=== PATIENT | male | born 1970 | race Caucasian/White ===

== ENCOUNTER 2018-08-09 13:30 | Emergency (ER) | payer OTHER ==
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
[2018-08-09] MEDS ORDERED: Ketorolac 30 MG/ML SDV IM ONE (15:08)
--- NOTE | 2018-08-09 15:40 | CR ---
Left shoulder: Three views of the left shoulder were obtained. Comparison: No prior shoulder study. Acromioclavicular and glenohumeral joints are within normal limits. No fracture, dislocation or other bony abnormality is seen. Impression: 1. No abnormality is identified on left shoulder study. Diagnostic code #1
== END 2018-08-09 16:21 | disposition home or self-care (01) ==
LOC: JD.ED 13:30
DX: M25.512 Pain in left shoulder (principal); M62.838 Other muscle spasm; F17.210 Nicotine dependence, cigarettes, uncomplicated; I10 Essential (primary) hypertension
CPT/HCPCS: 73030; 96372; 99283; J1885

== ENCOUNTER 2020-02-15 09:33 | Emergency (ER) | payer OTHER ==
--- NOTE | 2020-02-15 10:19 | EDM.PDOC ---
ED HPI GENERAL MEDICAL PROBLEM - General Chief Complaint: Neurological Problem Stated Complaint: DIZZY/LIGHTHEADED/ARM AND FACE NUMB OFF AND ON Time Seen by Provider: 02/15/20 10:19 - History of Present Illness INITIAL COMMENTS - FREE TEXT/NARRATIVE: 49-year-old male presents the emergency room with a history of left-sided numbness. Yesterday the patient had an episode where he developed left-sided facial numbness along with numbness in his arm and to a lesser degree in his leg. At this point he has some residual numbness in the left side of his face below the level of the eye extending down to the jaw. He does not have significant pain with this. When this episode started yesterday, he had a some lightheadedness with this and he left work early to go home and can try and get some rest. The patient has a significant family history of a mom who had a stroke at age 52. The patient smokes about a pack a day. And the patient has multiple energy drinks daily. He does not sleep well at night so he gets quite sleepy at work. It sounds like he is had a long-term problem with insomnia even prior to the energy drinks. - Related Data Allergies Allergy/AdvReac Type Severity Reaction Status Date / Time No Known Allergies Allergy Verified 02/15/20 09:37 Home Meds: Home Meds . [No Known Home Meds] 02/15/20 [History] Past Medical History HEENT History: Reports: Hard of Hearing, Impaired Vision Cardiovascular History: Reports: Hypertension Musculoskeletal History: Reports: Fracture, Neck Pain, Chronic - Past Surgical History HEENT Surgical History: Reports: Oral Surgery, Tonsillectomy Social & Family History - Family History Family Medical History: Noncontributory Cardiac: Reports: CAD Respiratory: Reports: COPD Oncologic: Reports: Prostate - Tobacco Use Smoking Status *Q: Current Every Day Smoker Years of Tobacco use: 34 Packs/Tins Daily: 1 - Caffeine Use Caffeine Use: Reports: Energy Drinks, Soda, Tea - Recreational Drug Use Recreational Drug Use: Yes Drug Use in Last 12 Months: Yes Recreational Drug Type: Reports: Marijuana/Hashish Recreational Drug Use Frequency: Socially ED ROS GENERAL - Review of Systems Review Of Systems: See Below Constitutional: Reports: No Symptoms HEENT: Reports: No Symptoms Respiratory: Reports: No Symptoms Cardiovascular: Reports: No Symptoms GI/Abdominal: Reports: No Symptoms : Reports: No Symptoms Musculoskeletal: Reports: No Symptoms Skin: Reports: No Symptoms Neurological: Reports: Numbness. Denies: Dizziness, Headache, Tremors, Change in Speech, Gait Disturbance Psychiatric: Reports: No Symptoms Hematologic/Lymphatic: Reports: No Symptoms ED EXAM, NEURO - Physical Exam Exam: See Below Exam Limited By: No Limitations General Appearance: Alert, No Apparent Distress Eye Exam: Bilateral Eye: EOMI, Normal Inspection, PERRL Ears: Normal External Exam, Normal Canal, Hearing Grossly Normal, Other (Patient has had multiple ear surgeries and has decreased hearing uses a hearing aid on the right side). No: Normal TMs Nose: Normal Inspection, Normal Mucosa Throat/Mouth: Normal Inspection, Normal Lips, Normal Teeth, Normal Gums, Normal Oropharynx, Normal Voice, No Airway Compromise Head Exam: Atraumatic, Normocephalic Neck: Normal Inspection, Supple, Non-Tender, Full Range of Motion. No: Lymphadenopathy (L), Lymphadenopathy (R) Respiratory/Chest: No Respiratory Distress, Lungs Clear, Normal Breath Sounds Cardiovascular: Regular Rate, Rhythm, No Edema, No Murmur GI/Abdominal: Normal Bowel Sounds, Soft, Non-Tender Neurological: Alert, Normal Mood/Affect, Other (The patient does not have any obvious muscle weakness in his face or his extremities. He does have some subtle numbness-like sensation over his left cheek. This does not extend up to the level of his eye or below his jaw. And over time seems to be getting better) Back Exam: Normal Inspection. No: CVA Tenderness (L), CVA Tenderness (R) Extremities: Normal Inspection, No Pedal Edema Psychiatric: Normal Affect, Normal Mood Skin Exam: Warm, Dry, Intact Course - Vital Signs Last Recorded V/S: Last Vital Signs Temp 36.6 C 02/15/20 09:40 Pulse 67 02/15/20 09:40 Resp 18 02/15/20 09:40 BP 153/100 H 02/15/20 09:40 Pulse Ox 96 02/15/20 09:40 - Orders/Labs/Meds Orders: Active Orders 24 hr Category Date Time Status EKG Documentation Completion [RC] STAT Care 02/15/20 12:18 Active Labs: Laboratory Tests 02/15/20 02/15/20 02/15/20 Range/Units 09:55 09:55 09:55 WBC 6.30 (4.23-9.07) K/mm3 RBC 5.10 (4.63-6.08) M/mm3 Hgb 15.6 (13.7-17.5) gm/dl Hct 45.8 (40.1-51.0) % MCV 89.8 (79.0-92.2) fl MCH 30.6 (25.7-32.2) pg MCHC 34.1 (32.2-35.5) g/dl RDW Std Deviation 41.9 (35.1-43.9) fL Plt Count 348 H (163-337) K/mm3 MPV 9.7 (9.4-12.3) fl Neut % (Auto) 46.8 (34.0-67.9) % Lymph % (Auto) 35.7 (21.8-53.1) % Churchill % (Auto) 13.0 H (5.3-12.2) % Eos % (Auto) 3.7 (0.8-7.0) Baso % (Auto) 0.3 (0.1-1.2) % Neut # (Auto) 2.95 (1.78-5.38) K/mm3 Lymph # (Auto) 2.25 (1.32-3.57) K/mm3 Churchill # (Auto) 0.82 (0.30-0.82) K/mm3 Eos # (Auto) 0.23 (0.04-0.54) K/mm3 Baso # (Auto) 0.02 (0.01-0.08) K/mm3 PT 10.9 (9.7-11.7) SECONDS INR 1.02 APTT 29 (22-31) SECONDS Sodium 136 (136-145) mEq/L Potassium 4.0 (3.5-5.1) mEq/L Chloride 103 (98-107) mEq/L Carbon Dioxide 26 (21-32) mEq/L Anion Gap 11.0 (5-15) BUN 7 (7-18) mg/dL Creatinine 1.1 (0.7-1.3) mg/dL Est Cr Clr Drug Dosing 66.26 mL/min Estimated GFR (MDRD) > 60 (>60) mL/min BUN/Creatinine Ratio 6.4 L (14-18) Glucose 102 (74-106) mg/dL Calcium 9.2 (8.5-10.1) mg/dL Total Bilirubin 0.2 (0.2-1.0) mg/dL AST 17 (15-37) U/L ALT 24 (16-63) U/L Alkaline Phosphatase 99 (46-116) U/L Troponin I < 0.017 (0.00-0.056) ng/mL Total Protein 7.2 (6.4-8.2) g/dl Albumin 3.7 (3.4-5.0) g/dl Globulin 3.5 gm/dL Albumin/Globulin Ratio 1.1 (1-2) - Re-Assessments/Exams Free Text/Narrative Re-Assessment/Exam: 02/15/20 12:54 At this time the patient is symptom-free. His laboratory evaluation is unrevealing head CT shows previous mastoidectomy agreed to be postsurgical nothing acute otherwise noted. I did discuss patient's case with Dr. Vail, we discussed the possibility of treatment for potential Orozco's palsy he cautioned against this. He did recommend checking a carotid Doppler. And starting baby aspirin. He agrees with stopping all energy drinks. I discussed this with the patient and he agrees to do so he agrees to follow-up with her regular provider I have recommended that we get a carotid Doppler he would like to have this done after and at the time he establishes with a regular provider and this is reasonable the patient agrees to do this this next week. Departure - Departure Time of Disposition: 12:56 Disposition: Home, Self-Care 01 Clinical Impression: Numbness - Discharge Information Referrals: PCP,None [Primary Care Provider] - Forms: ED Department Discharge Additional Instructions: Return to the emergency room with any questions problems or worsening symptoms. Start baby aspirin therapy today go by bottle of 81 mg enteric-coated baby aspirin and take 1 daily. Follow-up with a local healthcare provider this next week and discuss having them check a carotid Doppler on you especially with your family history of stroke and your smoking history. Stop all energy drinks! Try and make you still stay awake during the day the best that you can try and get to bed around 10:00 every evening anticipate waking up at 630 every morning. Trying to establish a normal sleep cycle. Sleeping medicines are an option however with all the energy drinks you are taking at this point I think it be more beneficial to hold off on that at this point. Sepsis Event Note (ED) - Evaluation Sepsis Screening Result: No Definite Risk - Focused Exam Vital Signs: Vital Signs Temp Pulse Resp BP Pulse Ox 02/15/20 09:40 36.6 C 67 18 153/100 H 96 - My Orders Last 24 Hours: My Active Orders 02/15/20 12:18 EKG Documentation Completion [RC] STAT - Assessment/Plan Last 24 Hours: My Active Orders 02/15/20 12:18 EKG Documentation Completion [RC] STAT
--- NOTE | 2020-02-15 11:01 | CT ---
Head CT Technique: Multiple axial sections through the brain were obtained. Intravenous contrast was not utilized. Comparison: No previous intracranial imaging is available. Findings: Ventricles along with basal cisterns and sulci over the convexities are within normal limits for the patient's age. No abnormal parenchymal densities are seen. No evidence of intracranial hemorrhage. No midline shift or mass-effect is seen. Bone window settings were reviewed. Previous right mastoidectomy is seen. Soft tissue material is noted within the mastoid defect presumably representing postop change. Left mastoid sinus is clear. Visualized paranasal sinuses are clear. No acute calvarial finding is seen. Impression: 1. Previous right mastoidectomy. Soft tissue density within the mastoid defect presumably postsurgical. 2. Nothing acute is appreciated on noncontrast head CT study. Diagnostic code #2 This report was dictated in MDT
== END 2020-02-15 13:15 | disposition home or self-care (01) ==
LOC: JD.ED 09:33
DX: R20.0 Anesthesia of skin (principal); I10 Essential (primary) hypertension; F17.210 Nicotine dependence, cigarettes, uncomplicated
CPT/HCPCS: 36415; 70450; 70450-26; 80053; 84484; 85025; 85610; 85730; 99283; 99284-25

== ENCOUNTER 2020-05-19 15:07 | Emergency (ER) | payer OTHER ==
--- NOTE | 2020-05-19 16:03 | EDM.PDOC ---
ED HPI GENERAL MEDICAL PROBLEM - General Chief Complaint: Respiratory Problem Stated Complaint: ABNORMAL EKG SENT BY [facility] [employer] Time Seen by Provider: 05/19/20 15:25 Source of Information: Reports: Patient, RN Notes Reviewed History Limitations: Reports: No Limitations - History of Present Illness INITIAL COMMENTS - FREE TEXT/NARRATIVE: Patient is a 49-year-old male who presents to the ED via referral from his primary care provider for the evaluation of his ongoing shortness of breath. He was seen by his PA located in the [facility] in [place], [place] for follow-up on his labs and clinic visit last week. He notes that last week Tuesday he had a syncopal episode at work, and he also had an episode of elevated blood pressure. He notes since then, he has had increased shortness of breath, fatigue so much so that he just cannot get anything done at home. He is complaining of some mild GERD or heartburn sensations, worse over the last couple days. He has not had any fevers or chills, he does have a cough that seems to be worsening however he is a smoker and relates he does have a smoker's cough. He does not know if he has had any known Covid-like contacts. The provider at the clinic was concerned about his increasing dyspnea. - Related Data Allergies Allergy/AdvReac Type Severity Reaction Status Date / Time No Known Allergies Allergy Verified 05/19/20 15:20 Home Meds: Home Meds . [No Known Home Meds] 02/15/20 [History] Past Medical History HEENT History: Reports: Hard of Hearing, Impaired Vision Cardiovascular History: Reports: High Cholesterol, Hypertension Musculoskeletal History: Reports: Fracture, Neck Pain, Chronic - Past Surgical History HEENT Surgical History: Reports: Oral Surgery, Tonsillectomy Social & Family History - Family History Family Medical History: No Pertinent Family History Cardiac: Reports: CAD Respiratory: Reports: COPD Oncologic: Reports: Prostate - Tobacco Use Tobacco Use Status *Q: Current Every Day Tobacco User Years of Tobacco use: 35 Packs/Tins Daily: 1.5 - Caffeine Use Caffeine Use: Reports: Coffee, Energy Drinks Caffeine Use Comment: has not had any energy drinks in about a month - Recreational Drug Use Recreational Drug Use: No ED ROS GENERAL - Review of Systems Review Of Systems: Comprehensive ROS is negative, except as noted in HPI. ED EXAM, GENERAL - Physical Exam Exam: See Below Exam Limited By: No Limitations General Appearance: Alert, WD/WN, No Apparent Distress Respiratory/Chest: No Respiratory Distress, Lungs Clear, Normal Breath Sounds, No Accessory Muscle Use, Chest Non-Tender Cardiovascular: Normal Peripheral Pulses, Regular Rate, Rhythm, No Murmur Peripheral Pulses: 2+: Radial (L), Radial (R) Extremities: Normal Inspection, Normal Capillary Refill Neurological: Alert, Oriented, Normal Cognition, No Motor/Sensory Deficits Psychiatric: Normal Affect, Normal Mood Skin Exam: Warm, Dry, Intact, Normal Color, No Rash #1 Interpretation EKG Date: 05/19/20 Time: 15:18 Rhythm: NSR Rate (Beats/Min): 68 [place]: Normal P-Wave: Present QRS: Normal ST-T: Normal QT: Normal EKG Interpretation Comments: No obvious ischemia or acute ST changes noted, reviewed by myself and Dr. Lopez. Course - Vital Signs Last Recorded V/S: Last Vital Signs Temp 97.1 F 05/19/20 15:15 Pulse 67 05/19/20 15:15 Resp 18 05/19/20 15:15 BP 153/86 H 05/19/20 15:15 Pulse Ox 100 05/19/20 15:15 - Orders/Labs/Meds Orders: Active Orders 24 hr Category Date Time Status EKG Documentation Completion [RC] STAT Care 05/19/20 15:39 Ordered Chest 1V Frontal [CR] Stat Exams 05/19/20 17:09 Ordered CORONAVIRUS COVID-19 PCR PHL Stat Lab 05/19/20 15:40 Ordered Labs: Laboratory Tests 05/19/20 05/19/20 05/19/20 Range/Units 16:00 16:00 16:00 WBC 10.01 H (4.23-9.07) K/mm3 RBC 4.67 (4.63-6.08) M/mm3 Hgb 14.3 (13.7-17.5) gm/dl Hct 41.5 (40.1-51.0) % MCV 88.9 (79.0-92.2) fl MCH 30.6 (25.7-32.2) pg MCHC 34.5 (32.2-35.5) g/dl RDW Std Deviation 42.2 (35.1-43.9) fL Plt Count 341 H (163-337) K/mm3 MPV 9.4 (9.4-12.3) fl Neutrophils % (Manual) 71 H (40-60) % Band Neutrophils % 0 (0-10) % Lymphocytes % (Manual) 22 (20-40) % Atypical Lymphs % 0 % Monocytes % (Manual) 7 (2-10) % Eosinophils % (Manual) 0 L (0.8-7.0) % Basophils % (Manual) 0 L (0.2-1.2) Platelet Estimate Adequate RBC Morph Comment Normal PT 11.1 (9.7-12.0) SECONDS INR 1.04 APTT 26.8 (21.7-31.4) SECONDS D-Dimer, Quantitative < 0.19 L (0.19-0.50) mg/L Sodium (136-145) mEq/L Potassium (3.5-5.1) mEq/L Chloride (98-107) mEq/L Carbon Dioxide (21-32) mEq/L Anion Gap (5-15) BUN (7-18) mg/dL Creatinine (0.7-1.3) mg/dL Est Cr Clr Drug Dosing mL/min Estimated GFR (MDRD) (>60) mL/min BUN/Creatinine Ratio (14-18) Glucose (74-106) mg/dL Calcium (8.5-10.1) mg/dL Magnesium (1.8-2.4) mg/dl Ferritin (26-388) ng/ml Total Bilirubin (0.2-1.0) mg/dL AST (15-37) U/L ALT (16-63) U/L Alkaline Phosphatase (46-116) U/L Troponin I (0.00-0.056) ng/mL C-Reactive Protein 0.2 (<1.0) mg/dL NT-Pro-B Natriuret Pep (0-125) pg/mL Total Protein (6.4-8.2) g/dl Albumin (3.4-5.0) g/dl Globulin gm/dL Albumin/Globulin Ratio (1-2) 05/19/20 05/19/20 05/19/20 Range/Units 16:00 16:00 16:00 WBC (4.23-9.07) K/mm3 RBC (4.63-6.08) M/mm3 Hgb (13.7-17.5) gm/dl Hct (40.1-51.0) % MCV (79.0-92.2) fl MCH (25.7-32.2) pg MCHC (32.2-35.5) g/dl RDW Std Deviation (35.1-43.9) fL Plt Count (163-337) K/mm3 MPV (9.4-12.3) fl Neutrophils % (Manual) (40-60) % Band Neutrophils % (0-10) % Lymphocytes % (Manual) (20-40) % Atypical Lymphs % % Monocytes % (Manual) (2-10) % Eosinophils % (Manual) (0.8-7.0) % Basophils % (Manual) (0.2-1.2) Platelet Estimate RBC Morph Comment PT (9.7-12.0) SECONDS INR APTT (21.7-31.4) SECONDS D-Dimer, Quantitative (0.19-0.50) mg/L Sodium 142 (136-145) mEq/L Potassium 3.5 (3.5-5.1) mEq/L Chloride 105 (98-107) mEq/L Carbon Dioxide 26 (21-32) mEq/L Anion Gap 14.5 (5-15) BUN 9 (7-18) mg/dL Creatinine 1.0 (0.7-1.3) mg/dL Est Cr Clr Drug Dosing 77.94 mL/min Estimated GFR (MDRD) > 60 (>60) mL/min BUN/Creatinine Ratio 9.0 L (14-18) Glucose 93 (74-106) mg/dL Calcium 9.5 (8.5-10.1) mg/dL Magnesium 2.1 (1.8-2.4) mg/dl Ferritin 177 (26-388) ng/ml Total Bilirubin 0.2 (0.2-1.0) mg/dL AST 12 L (15-37) U/L ALT 23 (16-63) U/L Alkaline Phosphatase 95 (46-116) U/L Troponin I < 0.017 (0.00-0.056) ng/mL C-Reactive Protein (<1.0) mg/dL NT-Pro-B Natriuret Pep 39 (0-125) pg/mL Total Protein 6.9 (6.4-8.2) g/dl Albumin 3.8 (3.4-5.0) g/dl Globulin 3.1 gm/dL Albumin/Globulin Ratio 1.2 (1-2) - Re-Assessments/Exams Free Text/Narrative Re-Assessment/Exam: 05/19/20 16:02 Patient presents to the ED for the evaluation of his ongoing shortness of breath. He will get some baseline labs to evaluate the possibility of COVID-19 illness versus ongoing cardiac issues. EKG was done and demonstrates no obvious acute abnormalities. Reviewed by myself and Dr. Lopez. 05/19/20 18:21 Laboratory evaluation has come back, and all the markers that should be elevated for COVID-19 infection are in fact not elevated. Patient's chest x-ray also demonstrated chronic appearing interstitial change with no acute cardiopulmonary disease identified. No signs of viral pneumonia; Which is reassuring. However I do not have a great reason for what is causing his dyspnea with exertion. I will have him follow-up with his regular provider for an outpatient cardiac stress test for further evaluation. 05/19/20 18:29 I did discuss the findings with the patient, and he states he will follow-up with his regular provider for stress test. He will go home and quarantine until he gets his state COVID-19 test results back. Departure - Departure Time of Disposition: 18:30 Disposition: Home, Self-Care 01 Condition: Good Clinical Impression: Dyspnea on exertion - Discharge Information *PRESCRIPTION DRUG MONITORING PROGRAM REVIEWED*: No *COPY OF PRESCRIPTION DRUG MONITORING REPORT IN PATIENT SUMANTH: No Instructions: Steps to Quit Smoking, [id number] Referrals: PCP,Not In Area [Primary Care Provider] - Forms: ED Department Discharge, ED Return to Work/School Form Additional Instructions: You were seen in the ER today for ongoing and/or worsening respiratory symptoms. Your chest x-ray showed no signs of pneumonia at this time. Your oxygen levels were great at 98-99% on room air. At this time we did test you for COVID-19. We ask that you self-quarantine and limit your exposure to others until you receive your results from the state. You have been given a work note to reflect this. Swabs are sent from this facility on a daily basis, at 2:30 PM, you should expect up to 3-5 business days for positive or negative results. However you may receive results earlier than this. We are doing our best to call as soon as we get results from the [place] dept. of Health. Please try to increase your oral fluid intake, and eat multiple small meals throughout the day, to keep yourself healthy. You need to keep yourself nourished in order to fight off this disease. You can try a liquid diet like gatorade/powerade as well to get your electrolytes. You may take 500 mg Tylenol every hours 6 hours for pain/fever relief. Do not exceed 4000 mg Tylenol in a 24-hour time span. However, running a fever is your body's natural response to illness, and it allows the body to develop antibodies to disease, we are recommending trying to limit the use of Tylenol as much as possible to allow your body's natural immune response. I would recommend you follow-up with your regular care provider, for a cardiac stress test, to further evaluate your heart function; and for further evaluation of your dyspnea with exertion. Please do this as soon as possible. Sepsis Event Note (ED) - Evaluation Sepsis Screening Result: No Definite Risk - Focused Exam Vital Signs: Vital Signs Temp Pulse Resp BP Pulse Ox 05/19/20 15:15 97.1 F 67 18 153/86 H 100 - My Orders Last 24 Hours: My Active Orders 05/19/20 15:39 EKG Documentation Completion [RC] STAT 05/19/20 15:40 CORONAVIRUS COVID-19 PCR PHL Stat 05/19/20 17:09 Chest 1V Frontal [CR] Stat - Assessment/Plan Last 24 Hours: My Active Orders 05/19/20 15:39 EKG Documentation Completion [RC] STAT 05/19/20 15:40 CORONAVIRUS COVID-19 PCR PHL Stat 05/19/20 17:09 Chest 1V Frontal [CR] Stat
--- NOTE | 2020-05-20 08:42 | CR ---
PROCEDURE INFORMATION: Exam: XR Chest, 1 View Exam date and time: 05/19/2020 5:10 PM Age: 49 years old Clinical indication: Shortness of breath; Patient HX: R/O covid TECHNIQUE: Imaging protocol: XR of the chest Views: 1 view. COMPARISON: No relevant prior studies available. FINDINGS: Lungs: There is mild increase in interstitial markings within the lungs. This is nonspecific. No pneumonia or pulmonary edema is present. Pleural space: Unremarkable. No pleural effusion. No pneumothorax. Heart/Mediastinum: Unremarkable. No cardiomegaly. Bones/joints: Unremarkable. IMPRESSION: Chronic appearing interstitial change. No acute cardiopulmonary disease identified. Thank you for allowing us to participate in the care of your patient. Dictated and Authenticated by: Stoney Issa MD 05/19/2020 6:55 PM Central Time ([place] & [place]) [facility]ENTER[facility]
== END 2020-05-19 18:50 | disposition home or self-care (01) ==
LOC: JD.ED 15:07
DX: R06.02 Shortness of breath (principal); F17.210 Nicotine dependence, cigarettes, uncomplicated; I10 Essential (primary) hypertension; Z20.828 Contact with and (suspected) exposure to other viral communicable diseases
CPT/HCPCS: 36415; 71045; 71045-26; 80053; 82728; 83735; 83880; 84484; 85007; 85027; 85379; 85610; 85730; 86140; 93005; 93010; 99283; 99285-25; U0002

== ENCOUNTER 2020-11-27 13:03 | Emergency (ER) | payer SELFPAY ==
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
[2020-11-27] MEDS ORDERED: Ketorolac 60 MG/2 ML SDV IM ONE (13:54)
[2020-11-27] MEDS ORDERED: Cyclobenzaprine 10 MG Tab PO ONE (13:54)
--- NOTE | 2020-11-27 14:42 | CR ---
Cervical spine: AP, lateral and odontoid views of the cervical spine were obtained. Comparison: No prior cervical spine imaging is available. There is moderate disc space narrowing noted at C5-6 with mild posterior osteophytes and anterior osteophytes. Mild disc space narrowing is noted at C6-7 with minimal posterior osteophytes and minimal anterior osteophytes. Other disc spaces are maintained. Vertebral body heights are maintained. No subluxation or fracture is appreciated. Impression: 1. Degenerative change at C5-6 and C6-7 as noted above. 2. Nothing acute is appreciated. Diagnostic code #2
== END 2020-11-27 15:11 | disposition home or self-care (01) ==
LOC: JD.ED 13:03
DX: M54.2 Cervicalgia (principal); I10 Essential (primary) hypertension
CPT/HCPCS: 72040; 96372; 99283; A9270; J1885

== ENCOUNTER 2021-08-07 12:12 | Emergency (ER) | payer SELFPAY ==
[2021-08-07] MEDS ORDERED: diphenhydrAMINE 50 MG/ML SDV IM ONE (12:28)
[2021-08-07] MEDS ORDERED: Metoclopramide 10 MG/2 ML SDV IM ONE (12:28)
[2021-08-07] MEDS ORDERED: Ketorolac 30 MG/ML SDV IM ONE (12:28)
[2021-08-07] MEDS ORDERED: HYDROmorphone 0.5 MG/0.5 ML Syringe IM ONE (13:41)
== END 2021-08-07 15:13 | disposition home or self-care (01) ==
LOC: JD.ED 12:12
DX: R51.9 Headache, unspecified (principal); E78.00 Pure hypercholesterolemia, unspecified; I10 Essential (primary) hypertension; Z72.0 Tobacco use
CPT/HCPCS: 96372; 99283; J1170; J1200; J1885; J2765; 99284

== ENCOUNTER 2021-10-05 08:52 | Emergency (ER) | payer SELFPAY ==
[2021-10-05] MEDS ORDERED: Sodium Chloride 0.9% 10 ML Syringe FLUSH PRN (09:05)
[2021-10-05] MEDS ORDERED: Albuterol 6.7 GM Inhaler INH ONE (10:27)
== END 2021-10-05 13:10 | disposition home or self-care (01) ==
LOC: JD.ED 08:52
DX: J40 Bronchitis, not specified as acute or chronic (principal); I10 Essential (primary) hypertension; F17.210 Nicotine dependence, cigarettes, uncomplicated
CPT/HCPCS: 36415; 71046; 80053; 84484; 85025; 93005; 94640; 99284; A9270; J3490; 93010; 99283

== ENCOUNTER 2021-12-14 12:03 | Emergency (ER) | payer BC ==
[2021-12-14] MEDS ORDERED: Sodium Chloride 0.9% 10 ML Syringe FLUSH PRN (12:52)
[2021-12-14] MEDS ORDERED: Acetaminophen 325 MG Tab PO ONE (13:02)
[2021-12-14 13:54] LABS: ESTIMATED GFR 102 mL/min (>60)
== END 2021-12-14 15:54 | disposition home or self-care (01) ==
LOC: JD.ED 12:03
DX: N39.0 Urinary tract infection, site not specified (principal); R51.9 Headache, unspecified; I10 Essential (primary) hypertension; E78.00 Pure hypercholesterolemia, unspecified; F17.210 Nicotine dependence, cigarettes, uncomplicated
CPT/HCPCS: 36415; 70450; 71045; 80053; 81001; 83735; 84443; 84484; 85025; 85379; 86140; 87086; 87088; 87186; 93005; 99284; A9270; 93010; 99282

== ENCOUNTER 2022-02-05 15:27 | Emergency (ER) | payer BC ==
[2022-02-05] MEDS ORDERED: Sodium Chloride 0.9% 10 ML Syringe FLUSH PRN (15:46)
[2022-02-05] MEDS ORDERED: Ketorolac 30 MG/ML SDV IVPUSH ONE (16:06)
== END 2022-02-05 17:20 | disposition home or self-care (01) ==
LOC: JD.ED 15:27
DX: R07.89 Other chest pain (principal); T50.905A Adverse effect of unspecified drugs, medicaments and biological substances, initial encounter; E78.00 Pure hypercholesterolemia, unspecified; I10 Essential (primary) hypertension; Z79.899 Other long term (current) drug therapy
CPT/HCPCS: 36415; 71045; 80053; 83735; 83880; 84484; 85025; 85610; 85730; 93005; 96374; 99285; J1885; J3490; 93010; 99284

== ENCOUNTER 2022-02-17 13:08 | Emergency (ER) | payer BC | END 2022-02-17 14:20 | disposition left against medical advice (07) | LOC: JD.ED 13:08 | DX: Z53.21 Procedure and treatment not carried out due to patient leaving prior to being seen by health care provider (principal) ==

== ENCOUNTER 2022-06-30 12:12 | Emergency (ER) | payer BC ==
[2022-06-30] MEDS ORDERED: Sodium Chloride 0.9% 10 ML Syringe FLUSH PRN (12:44)
[2022-06-30 14:45] LABS: CORONAVIRUS COVID-19 NAA NEGATIVE (NEGATIVE)
== END 2022-06-30 15:50 | disposition home or self-care (01) ==
LOC: JD.ED 12:12
DX: R07.89 Other chest pain (principal); J44.9 Chronic obstructive pulmonary disease, unspecified; I10 Essential (primary) hypertension; E78.00 Pure hypercholesterolemia, unspecified; Z79.899 Other long term (current) drug therapy; Z20.822 Contact with and (suspected) exposure to COVID-19
CPT/HCPCS: 0241U; 36415; 71046; 71046-26; 80053; 84443; 84484; 85025; 85379; 93005; 99285; J3490

== ENCOUNTER 2022-09-24 13:05 | Day surgery (SDC) | payer BC ==
[2022-09-24] MEDS ORDERED: Sodium Chloride 0.9% 10 ML Syringe FLUSH SCH (13:10)
[2022-09-24] MEDS ORDERED: Sodium Chloride 0.9% 10 ML Syringe FLUSH PRN (13:10)
[2022-09-24] MEDS ORDERED: Lidocaine 1%/Sod Bicarbonate in NS 8.4% 1 ML Syringe IDERM PRN (13:10)
[2022-09-24] MEDS ORDERED: Lactated Ringers 1,000 ML IV SCH (13:10)
[2022-09-24] MEDS ORDERED: Bupivacaine 0.5%/EPINEPHrine 1:200,000 50 ML MDV ONE (13:21)
[2022-09-24] MEDS ORDERED: Rocuronium 50 MG/5 ML Vial ONE (13:22)
[2022-09-24] MEDS ORDERED: fentaNYL 100 MCG/2 ML SDV ONE (13:22)
[2022-09-24] MEDS ORDERED: Lidocaine 1% 4 ML ONE (13:22)
[2022-09-24] MEDS ORDERED: Propofol 200 MG/20 ML SDV ONE (13:22)
[2022-09-24] MEDS ORDERED: Famotidine 20 MG/2 ML SDV IVPUSH SCH (13:49)
[2022-09-24] MEDS ORDERED: Dexamethasone 4 MG/ML 5 ML MDV ONE (14:26)
[2022-09-24] MEDS ORDERED: Ondansetron 4 MG/2 ML SDV ONE (14:26)
[2022-09-24] MEDS ORDERED: Ketorolac 30 MG/ML SDV ONE (14:27)
[2022-09-24] MEDS ORDERED: HYDROmorphone 0.5 MG/0.5 ML Syringe ONE (14:28)
[2022-09-24] MEDS ORDERED: Neostigmine Methylsulfate 10 MG/10 ML MDV ONE (14:42)
== END 2022-09-24 16:37 | disposition home or self-care (01) ==
LOC: JD.SDS 13:05
PROVIDERS: ATTEND Specialist
DX: K35.30 Acute appendicitis with localized peritonitis, without perforation or gangrene (principal); E78.00 Pure hypercholesterolemia, unspecified; I10 Essential (primary) hypertension; J43.9 Emphysema, unspecified; Z79.899 Other long term (current) drug therapy
CPT/HCPCS: 00840; 99140; J1100; J1170; J1885; J2405; J2704; J2710; J3010; J3490; J7120

== ENCOUNTER 2023-01-13 08:50 | Emergency (ER) | payer BC ==
[2023-01-13 09:34] LABS: APPEARANCE,URINE CLEAR (Clear); BILIRUBIN,URINE NEGATIVE (Negative); COLOR,URINE YELLOW (Yellow); GLUCOSE,URINE NEGATIVE (Negative); KETONES,URINE NEGATIVE (Negative); LEUKOCYTE ESTERASE,URINE 3+ (Negative); NITRITE,URINE POSITIVE (Negative); OCCULT BLOOD,URINE 1+ (Negative); PROTEIN,URINE NEGATIVE (Negative)
[2023-01-13 09:43] LABS: BACTERIA,URINE MANY /hpf (FEW); MUCUS,URINE FEW /hpf (FEW); SQUAMOUS EPITHELIAL CELLS,UR 0-5 /hpf (0-5); WBC,URINE 30-40 /hpf (0-5)
[2023-01-13 09:43] LABS: BASOPHILS ABSOLUTE AUTO 0.02 K/mm3 (0.01-0.08); BASOPHILS PERCENT AUTO 0.2 % (0.1-1.2); EOSINOPHILS ABSOLUTE AUTO 0.41 K/mm3 (0.04-0.54); EOSINOPHILS PERCENT AUTO 4.9 (0.8-7.0); HEMATOCRIT 42.7 % (40.1-51.0); HEMOGLOBIN 14.6 gm/dl (13.7-17.5); IMMATURE GRAN ABSOLUTE AUTO 0.02 K/mm3 (0.00-0.10); IMMATURE GRAN PERCENT AUTO 0.2 % (<=1.0); LYMPHOCYTES ABSOLUTE AUTO 2.09 K/mm3 (1.32-3.57); LYMPHOCYTES PERCENT AUTO 24.8 % (21.8-53.1); MEAN CORPUSCULAR HEMOGLOBIN 31.3 pg (25.7-32.2); MEAN CORPUSCULAR HGB CONC 34.2 g/dl (32.2-35.5); MEAN CORPUSCULAR VOLUME 91.4 fl (79.0-92.2); MEAN PLATELET VOLUME 9.4 fl (9.4-12.3); MONOCYTES ABSOLUTE AUTO 1.06 K/mm3 (0.30-0.82); MONOCYTES PERCENT AUTO 12.6 % (5.3-12.2); NEUTROPHILS ABSOLUTE AUTO 4.84 K/mm3 (1.78-5.38); NEUTROPHILS PERCENT AUTO 57.3 % (34.0-67.9); PLATELET COUNT,PLT 299 K/mm3 (163-337); RED BLOOD CELL COUNT 4.67 M/mm3 (4.63-6.08); WHITE BLOOD CELL COUNT,WBC 8.44 K/mm3 (4.23-9.07)
[2023-01-13 10:01] LABS: A/G RATIO 1.1 (1-2); ALBUMIN 3.6 g/dl (3.4-5.0); ANION GAP 12.9 (5-15); BILIRUBIN TOTAL 0.2 mg/dL (0.2-1.0); BUN/CREATININE RATIO 11.1 (14-18); CALCIUM 9.4 mg/dL (8.5-10.1); CREATININE 0.9 mg/dL (0.7-1.3); EST CRCL DRUG DOSING (CG) 84.67 mL/min; POTASSIUM,K 3.9 mEq/L (3.5-5.1)
== END 2023-01-13 10:55 | disposition home or self-care (01) ==
LOC: JD.ED 08:50
DX: N39.0 Urinary tract infection, site not specified (principal); R31.9 Hematuria, unspecified
CPT/HCPCS: 36415; 74176; 74176-26; 80053; 81001; 85025; 99283; 99285

== ENCOUNTER 2023-03-07 10:38 | Emergency (ER) | payer BC ==
[2023-03-07] MEDS ORDERED: Albuterol/Ipratropium 3.0-0.5 MG/3 ML Neb Soln NEB ONE (11:56)
[2023-03-07 11:59] LABS: HEMATOCRIT 42.5 % (42.0-52.0); HEMOGLOBIN 14.7 gm/dl (14.0-18.0); MEAN CORPUSCULAR HEMOGLOBIN 30.9 pg (28.0-32.0); MEAN CORPUSCULAR HGB CONC 34.6 g/dl (32.0-36.0); MEAN CORPUSCULAR VOLUME 89.3 fl (83.0-99.0); MEAN PLATELET VOLUME 9.5 fl (9.4-12.4); PLATELET COUNT,PLT 349 K/mm3 (150-400); RED BLOOD CELL COUNT 4.76 M/mm3 (4.52-5.90); WHITE BLOOD CELL COUNT,WBC 8.61 K/mm3 (3.9-11.3)
[2023-03-07 12:30] LABS: ALBUMIN 3.8 g/dl (3.4-5.0); ANION GAP 15.4 (5-15); BILIRUBIN TOTAL 0.3 mg/dL (0.2-1.0); C-REACTIVE PROTEIN 1.3 mg/dL (<1.0); CALCIUM 9.4 mg/dL (8.5-10.1); CREATININE 0.9 mg/dL (0.7-1.3); EST CRCL DRUG DOSING (CG) 84.67 mL/min; POTASSIUM,K 3.4 mEq/L (3.5-5.1); PROTEIN TOTAL,TP 7.5 g/dl (6.4-8.2)
[2023-03-07 13:35] LABS: BAND PERCENT MAN 1 % (0-10); BASOPHILS PERCENT MAN 0 (0.2-1.2); EOSINOPHILS PERCENT MAN 0 % (0.8-7.0); LYMPHOCYTES % ATYPICAL MANUAL 2 %; LYMPHOCYTES PERCENT MAN 23 % (20-40); MONOCYTES PERCENT MAN 10 % (2-10)
[2023-03-07 13:36] LABS: PLATELET COUNT ESTIMATE ADEQUATE
[2023-03-07 14:01] LABS: CORONAVIRUS COVID-19 NAA NEGATIVE (NEGATIVE); INFLUENZA A NAA NEGATIVE (NEGATIVE)
== END 2023-03-07 14:20 | disposition home or self-care (01) ==
LOC: JD.ED 10:38
DX: J44.1 Chronic obstructive pulmonary disease with (acute) exacerbation (principal); I10 Essential (primary) hypertension; Z20.822 Contact with and (suspected) exposure to COVID-19
CPT/HCPCS: 0240U; 36415; 71045; 80053; 83880; 84484; 85007; 85027; 85379; 86140; 93005; 94640; 99285; 93010; 99283; J7620-GY

== ENCOUNTER 2023-09-14 09:22 | Emergency (ER) | payer BC ==
[2023-09-14 10:09] LABS: BASOPHILS ABSOLUTE AUTO 0.1 K/mm3 (0.0-0.2); BASOPHILS PERCENT AUTO 0.8 % (0.0-1.0); EOSINOPHILS ABSOLUTE AUTO 0.4 K/mm3 (0.0-0.4); HEMATOCRIT 45.6 % (42.0-52.0); HEMOGLOBIN 15.7 gm/dl (14.0-18.0); IMMATURE GRAN ABSOLUTE AUTO 0.03 K/mm3 (0.00-0.05); IMMATURE GRAN PERCENT AUTO 0.4 % (0.0-0.4); LYMPHOCYTES ABSOLUTE AUTO 2.8 K/mm3 (1.0-4.8); LYMPHOCYTES PERCENT AUTO 38.5 % (24.0-44.0); MEAN CORPUSCULAR HGB CONC 34.4 g/dl (32.0-36.0); MEAN CORPUSCULAR VOLUME 89.9 fl (83.0-99.0); MEAN PLATELET VOLUME 9.3 fl (9.4-12.4); MONOCYTES ABSOLUTE AUTO 0.6 K/mm3 (0.0-0.8); MONOCYTES PERCENT AUTO 8.6 % (0.0-8.0); NEUTROPHILS ABSOLUTE AUTO 3.3 K/mm3 (1.8-7.7); NEUTROPHILS PERCENT AUTO 45.7 % (41.0-71.0); PLATELET COUNT,PLT 338 K/mm3 (150-400); RED BLOOD CELL COUNT 5.07 M/mm3 (4.52-5.90); WHITE BLOOD CELL COUNT,WBC 7.29 K/mm3 (3.9-11.3)
[2023-09-14 10:10] LABS: A/G RATIO 1.2 (1-2); ALBUMIN 4.1 g/dl (3.4-5.0); ANION GAP 15.3 (5-15); BILIRUBIN TOTAL 0.3 mg/dL (0.2-1.0); CALCIUM 9.3 mg/dL (8.5-10.1); EST CRCL DRUG DOSING (CG) 75.32 mL/min; POTASSIUM,K 4.3 mEq/L (3.5-5.1); PROTEIN TOTAL,TP 7.4 g/dl (6.4-8.2)
[2023-09-14] MEDS: Aluminum Hydroxide/Magnesium Hydroxide/Simethicone Susp 30 ML Cup PO ONE (11:20)
[2023-09-14] MEDS: Famotidine 20 MG Tab PO ONE (11:20)
== END 2023-09-14 11:55 | disposition home or self-care (01) ==
LOC: JD.ED 09:22
DX: R07.2 Precordial pain (principal); I10 Essential (primary) hypertension; E78.00 Pure hypercholesterolemia, unspecified; Z79.899 Other long term (current) drug therapy
CPT/HCPCS: 36415; 71046; 80053; 84484; 85025; 93005; 99285; A9270; 93010; 99283

== ENCOUNTER 2023-11-30 12:19 | Emergency (ER) | payer BC ==
[2023-11-30] MEDS: Lactated Ringers 1,000 ML IV ONE (13:40)
[2023-11-30 13:58] LABS: BASOPHILS ABSOLUTE AUTO 0.1 K/mm3 (0.0-0.2); BASOPHILS PERCENT AUTO 0.8 % (0.0-1.0); EOSINOPHILS ABSOLUTE AUTO 0.5 K/mm3 (0.0-0.4); EOSINOPHILS PERCENT AUTO 5.9 % (0.0-6.0); HEMATOCRIT 44.5 % (42.0-52.0); HEMOGLOBIN 15.3 gm/dl (14.0-18.0); IMMATURE GRAN ABSOLUTE AUTO 0.04 K/mm3 (0.00-0.05); IMMATURE GRAN PERCENT AUTO 0.5 % (0.0-0.4); LYMPHOCYTES PERCENT AUTO 34.8 % (24.0-44.0); MEAN CORPUSCULAR HGB CONC 34.4 g/dl (32.0-36.0); MEAN CORPUSCULAR VOLUME 90.1 fl (83.0-99.0); MEAN PLATELET VOLUME 9.1 fl (9.4-12.4); MONOCYTES ABSOLUTE AUTO 0.9 K/mm3 (0.0-0.8); NEUTROPHILS ABSOLUTE AUTO 4.2 K/mm3 (1.8-7.7); PLATELET COUNT,PLT 295 K/mm3 (150-400); RED BLOOD CELL COUNT 4.94 M/mm3 (4.52-5.90); WHITE BLOOD CELL COUNT,WBC 8.67 K/mm3 (3.9-11.3)
[2023-11-30 14:29] LABS: A/G RATIO 1.2 (1-2); ALBUMIN 3.9 g/dl (3.4-5.0); ANION GAP 10.1 (5-15); BILIRUBIN TOTAL 0.2 mg/dL (0.2-1.0); CALCIUM 9.4 mg/dL (8.5-10.1); EST CRCL DRUG DOSING (CG) 75.32 mL/min; MAGNESIUM 2.1 mg/dL (1.8-2.4); POTASSIUM,K 4.1 mEq/L (3.5-5.1); PROTEIN TOTAL,TP 7.1 g/dl (6.4-8.2)
== END 2023-11-30 15:46 | disposition home or self-care (01) ==
LOC: JD.ED 12:19
DX: R07.9 Chest pain, unspecified (principal); I10 Essential (primary) hypertension; R53.1 Weakness; F17.210 Nicotine dependence, cigarettes, uncomplicated; Z79.899 Other long term (current) drug therapy
CPT/HCPCS: 36415; 71045; 80053; 82947; 83735; 84484; 85025; 93005; 96360; 99285; J7120

== ENCOUNTER 2024-06-14 09:04 | Emergency (ER) | payer BC ==
[2024-06-14] MEDS ORDERED: Sodium Chloride 0.9% 10 ML Syringe FLUSH PRN (09:22)
[2024-06-14 09:32] LABS: BASOPHILS ABSOLUTE AUTO 0.1 K/mm3 (0.0-0.2); BASOPHILS PERCENT AUTO 0.5 % (0.0-1.0); EOSINOPHILS ABSOLUTE AUTO 0.3 K/mm3 (0.0-0.4); EOSINOPHILS PERCENT AUTO 2.1 % (0.0-6.0); HEMATOCRIT 46.5 % (42.0-52.0); HEMOGLOBIN 16.5 gm/dl (14.0-18.0); IMMATURE GRAN ABSOLUTE AUTO 0.06 K/mm3 (0.00-0.05); IMMATURE GRAN PERCENT AUTO 0.5 % (0.0-0.4); LYMPHOCYTES ABSOLUTE AUTO 3.4 K/mm3 (1.0-4.8); LYMPHOCYTES PERCENT AUTO 26.9 % (24.0-44.0); MEAN CORPUSCULAR HEMOGLOBIN 31.1 pg (28.0-32.0); MEAN CORPUSCULAR HGB CONC 35.5 g/dl (32.0-36.0); MEAN CORPUSCULAR VOLUME 87.7 fl (83.0-99.0); MEAN PLATELET VOLUME 8.9 fl (9.4-12.4); MONOCYTES PERCENT AUTO 7.9 % (0.0-8.0); NEUTROPHILS ABSOLUTE AUTO 7.9 K/mm3 (1.8-7.7); NEUTROPHILS PERCENT AUTO 62.1 % (41.0-71.0); PLATELET COUNT,PLT 373 K/mm3 (150-400); WHITE BLOOD CELL COUNT,WBC 12.73 K/mm3 (3.9-11.3)
[2024-06-14 10:01] LABS: A/G RATIO 1.2 (1-2); ALBUMIN 4.2 g/dl (3.4-5.0); ANION GAP 14.8 (5-15); BILIRUBIN TOTAL 0.4 mg/dL (0.2-1.0); BUN/CREATININE RATIO 14.4 (14-18); CREATININE 0.9 mg/dL (0.7-1.3); EST CRCL DRUG DOSING (CG) 83.69 mL/min; MAGNESIUM 2.1 mg/dL (1.8-2.4); POTASSIUM,K 3.8 mEq/L (3.5-5.1); PROTEIN TOTAL,TP 7.8 g/dl (6.4-8.2)
== END 2024-06-14 12:42 | disposition home or self-care (01) ==
LOC: JD.ED 09:04
DX: R07.9 Chest pain, unspecified (principal); R06.02 Shortness of breath; R53.1 Weakness; I10 Essential (primary) hypertension; J45.909 Unspecified asthma, uncomplicated; F17.210 Nicotine dependence, cigarettes, uncomplicated; Z90.89 Acquired absence of other organs; Z79.899 Other long term (current) drug therapy
CPT/HCPCS: 36415; 70450; 70450-26; 71045; 71045-26; 80053; 83735; 84484; 85025; 85379; 93005; 99285